=== PATIENT | male | born 1960 | race Caucasian/White ===

== ENCOUNTER 2022-03-14 12:12 | Emergency (ER) | payer OTHER, SELFPAY ==
--- NOTE | ~2022-03-14 | XR_ITS ---
EXAMINATION: [id number] DATE: 03/14/2022 12:59 INDICATION: Anterolateral right rib pain post fall down stairs one week prior. TECHNIQUE: A frontal inspiratory view of the chest and 3 views of the right ribs were obtained. COMPARISON: None FINDINGS: Nondisplaced fracture of the anterior right fourth-seventh ribs. There is also a minimally displaced fracture of the posterior right 11th rib. There is irregular cortical contour at the anterior left th ird-seventh ribs without evident linear lucencies consistent with age-indeterminate rib fractures. Is focal lenticular pleural thickening at the lateral left lower lung zone overlying the lateral left e ighth and ninth ribs which given the history of trauma raises suspicion for a subpleural hematoma rel ated to an additional nondisplaced rib fractures. Lungs are otherwise clear with no airspace opacitie s, pulmonary edema, pleural effusion or pneumothorax. Cardiomediastinal silhouette is normal. Moderat e thoracic spondylosis. IMPRESSION: 1. Acute appearing minimally displaced anterior right fourth-seventh and posterior right 11th rib fra ctures. 2. Age-indeterminate nondisplaced fractures of the left third-seventh ribs and lenticular pleural-bas ed opacity at the lateral left lower lung zone overlying the lateral left eighth and ninth ribs which given the history of trauma raises suspicion for a subpleural hematoma related to an additional nond isplaced rib fractures. Correlate for clinical history of prior left-sided rib fractures and for left -sided chest wall tenderness to palpation. Otherwise would recommend correlation with any prior outsi de imaging or short interval follow-up chest radiograph to reassess the pleural-based opacity lateral left lower lung zone. 3. No pneumothorax, pleural effusion or other acute cardiopulmonary disease. Reviewed, dictated and finalized at location A. [facility] IMPRESSION: 1. Acute appearing minimally displaced anterior right fourth-seventh and coagulator ior right 11th rib fractures. 2. Age-indeterminate nondisplaced fractures of the left third-seventh ribs and lenticular pleural-based opacity at the lateral left lower lung zone overlying the lateral left eighth and ninth ribs which given the history of trauma raises suspicion for a subpleural hematoma related to an additional nondisplaced rib fractures. Correlate for clinical history of prior left-sided rib fractures and for left-sided chest wall tenderness to palpation. Otherwise would recommend c orrelation with any prior outside imaging or short interval follow-up chest rad iograph to reassess the pleural-based opacity lateral left lower lung zone. 3. No pneumothorax, pleural effusion or other acute cardiopulmonary disease.
[2022-03-14 12:30] VITALS: BP 124/66; PULSE 84; RESP 20; TEMP 37; O2SAT 98
--- NOTE | 2022-03-14 12:35 | ED.FALL ---
HPI - Fall General Chief Complaint: Unspecified Stated Complaint: injury to ribs Time Seen by Provider: 03/14/22 12:35 Source: patient and RN notes reviewed History of Present Illness HPI Narrative: Patient is a 61-year-old male who presents to the Urgent Care with complaints of right rib pain. Patient states that he fell up 6 apartment steps on the 07 of March after being intoxicated. Patient states that his father took him to the emergency room and they kept him overnight but did not do any x-rays. Patient states that he has been taking ibuprofen for the pain. States that he is having pain with deep breathing. Denies any bruising to the chest. Denies any shortness of breath. No other acute complaints. No acute distress noted. Patient aware of the plan of care. Some parts of this dictation were generated by voice recognition software and may contain typographical and/or grammatical inaccuracies. Related Data Home Medications Medication Instructions Recorded Confirmed quetiapine 400 mg tablet 800 mg PO DAILY 03/14/22 03/14/22 Allergies Allergy/AdvReac Type Severity Reaction Status Date / Time No Known Allergies Allergy Verified 03/14/22 12:55 Review of Systems Review of Systems: CONSTITUTIONAL: Denies fever, chills, or sweats. EYES: Denies visual changes, redness, or discharge. ENT: Denies rhinorrhea, congestion, sore throat, or otalgia. CARDIOVASCULAR: Denies chest pain, palpitations, or edema. RESPIRATORY: Denies cough or dyspnea. Reports of right rib discomfort GASTROINTESTINAL: Denies abdominal pain, nausea, vomiting, or diarrhea. GENITOURINARY: Denies dysuria or hematuria. SKIN: Denies rash or itching. MUSCULOSKELETAL: Denies back pain, joint pain, or myalgia. NEUROLOGIC: Denies headache, numbness, or weakness. All other systems reviewed are negative, except as documented in HPI. PMFSH Comments At the time of my signature, I reviewed and agree with the nursing past medical, surgical, social, and family history. There is no relevant family history pertinent to the patient complaint. Exam Narrative: GENERAL: This is a well-nourished, well-developed patient, in no apparent distress. HEAD: normocephalic, atraumatic. EYES: PERRL. Sclera clear/white. Vision is grossly intact. EARS: External ears normal NOSE: External nose normal with no obvious nasal discharge, nares without redness, no rhinorrhea. THROAT: Mucous membranes moist NECK: Neck supple CARDIOVASCULAR: Regular rate and rhythm without murmurs, gallops, or rubs. RESPIRATORY: Clear to auscultation. Breath sounds equal bilaterally. No wheezes, rales, or rhonchi. moderate tenderness to right lateral chest near the 7th to 8th ribs SKIN: warm, intact with no suspicious lesions or rash, good texture and turgor. NEURO: awake, alert, and oriented to person, place and time. There were no obvious focal neurologic abnormalities. EXTREMITIES: No clubbing, cyanosis, or edema. Course Course Level of Care: Express Care Visit Vital Signs Vital signs: Vital Signs Temperature 98.6 F 03/14/22 12:30 Pulse Rate 84 03/14/22 12:30 Respiratory Rate 20 03/14/22 12:30 Blood Pressure 124/66 03/14/22 12:30 Pulse Oximetry 98 03/14/22 12:30 Oxygen Delivery Room Air 03/14/22 12:30 Temperature 98.6 F 03/14/22 12:30 Pulse Rate 84 03/14/22 12:30 Respiratory Rate 20 03/14/22 12:30 Blood Pressure 124/66 03/14/22 12:30 Pulse Oximetry 98 03/14/22 12:30 Oxygen Delivery Room Air 03/14/22 12:30 reviewed MDM - Fall MDM Narrative Medical decision making narrative: reviewed x-ray results with the patient. He is aware that He has several rib fractures and due to the trauma of the fall, possible hematoma. Considering patient is currently stable without any complications, patient chooses to go home and will follow-up with his primary care doctor after his visit with us today. Patient is aware that radiologist is recommendin
== END 2022-03-14 13:28 | disposition home or self-care (01) ==
PROVIDERS: Emergency Provider Nurse Practitioner Family; PCP Nurse Practitioner Family
DX: S22.41XA Multiple fractures of ribs, right side, initial encounter for closed fracture (principal); W10.9XXA Fall (on) (from) unspecified stairs and steps, initial encounter
CPT/HCPCS: 71101; 99213; G0463

== ENCOUNTER 2024-01-15 12:06 | Emergency (ER) | payer OTHER, SELFPAY ==
--- NOTE | ~2024-01-15 | XR_ITS ---
EXAMINATION: XR knee RT min 4V DATE: 01/15/2024 13:26 INDICATION: Right knee pain. TECHNIQUE: 6 views of right knee were obtained. COMPARISON: None. FINDINGS: Alignment is normal. No acute fracture. There is internal fixation of distal femur with int ramedullary josseline and distal interlocking screw. No acute fracture. There is mild tricompartmental oste oarthritis. No knee joint effusion. IMPRESSION: 1. Mild right knee osteoarthritis. Reviewed, dictated and finalized at location A.
[2024-01-15 12:14] VITALS: BP 112/63; PULSE 75; RESP 20; TEMP 36.5; O2SAT 96
--- NOTE | 2024-01-15 13:04 | ED.LOWEXIN ---
HPI - Extremity Injury (Lower) General Chief Complaint: Extremity Injury, Lower Stated Complaint: Right leg pain Time Seen by Provider: 01/15/24 13:04 Source: patient Mode of arrival: ambulatory Limitations: no limitations History of Present Illness HPI Narrative: 63 year old male presented for complaint of right knee pain. Onset yesterday. He states while kneeling he was unable to get up, and has had pain to the outer aspect of the knee since then. Endorses decreased range of motion with bending. Also states last week he had difficulty getting off floor. Denies swelling, erythema, numbness tingling or weakness to the leg. Endorses a history of surgical screws to the hip and knee. Walking with a cane. Related Data Home Medications Medication Instructions Recorded Confirmed quetiapine 400 mg tablet 800 mg PO DAILY 03/14/22 03/14/22 celecoxib 200 mg capsule mg 01/15/24 ibuprofen 600 mg tablet mg 01/15/24 Allergies Allergy/AdvReac Type Severity Reaction Status Date / Time No Known Allergies Allergy Verified 03/14/22 12:55 Review of Systems Review of Systems: CONSTITUTIONAL: Denies body aches, fever, chills EYES: Denies visual changes ENT: Denies rhinorrhea, congestion CARDIOVASCULAR: Denies chest pain, palpitations, or edema. RESPIRATORY: Denies cough or dyspnea. GASTROINTESTINAL: Denies abdominal pain, nausea, vomiting, or diarrhea. SKIN: Denies rash, itching, or wounds. MUSCULOSKELETAL: per HPI NEUROLOGIC: Denies headache, numbness, tingling, or weakness. All systems reviewed & are unremarkable except as noted in HPI and below PMFSH Surgical History Surgical History (Updated 01/15/24 @ 13:17 by Jody Olguin APRN) History of hip surgery Comments At time of signature, I have reviewed and agree with nursing past medical, surgical, social and family history unless otherwise noted. Please see nursing chart for further information. There is no relevant family history pertinent to the presenting complaint Exam Narrative: GENERAL: Well-appearing CHEST: Speaks in full sentences. No respiratory distress. HEART: Regular rate and rhythm. Normal and equal peripheral pulses. EXTREMITIES: Patient is able to bear weight and ambulate with reports of pain to the right knee. No bruising, erythema or warmth. The knee is without obvious asymmetry or deformity when compared to the other knee. Patient is able to tolerate full extension, internal and external rotation but reports limted ROM with flexion beyond 90 degrees. Tender with palpation to lateral/posterior knee. No tenderness to palpation of the patella, no effusion or ballottement. No tenderness over the infrapatellar tendon. No tenderness over the proximal fibular head. No quadriceps tenderness. Distal motor and neurovascular status intact. Capillary refill less than 3 seconds. SKIN: Warm, dry, no rash. NEURO: Alert and oriented x3. PSYCH: Normal mood and affect Course Course Emergency Course: Patient is aware of diagnosis, understands and agrees to treatment plan. Anticipatory guidance given. Patient agrees to follow-up as directed and is aware of reasons to seek care at the emergency department. Portions of this record may have been created with voice recognition software Level of Care: Express Care Visit Vital Signs Vital signs: Vital Signs Temperature 97.7 F 01/15/24 12:14 Pulse Rate 75 01/15/24 12:14 Respiratory Rate 20 01/15/24 12:14 Blood Pressure 112/63 01/15/24 12:14 Pulse Oximetry 96 01/15/24 12:14 Oxygen Delivery Room Air 01/15/24 12:14 Temperature 97.7 F 01/15/24 12:14 Pulse Rate 75 01/15/24 12:14 Respiratory Rate 20 01/15/24 12:14 Blood Pressure 112/63 01/15/24 12:14 Pulse Oximetry 96 01/15/24 12:14 Oxygen Delivery Room Air 01/15/24 12:14 Reviewed MDM - Extremity Injury (Lower) MDM Narrative Medical decision making narrative: Discussed physical exam findings and
== END 2024-01-15 13:50 | disposition home or self-care (01) ==
PROVIDERS: Emergency Provider Nurse Practitioner Family; PCP Nurse Practitioner Family
DX: M25.561 Pain in right knee (principal)
CPT/HCPCS: 73564; 99213; G0463